=== PATIENT | male | born 1955 | race African-American/Black ===

== ENCOUNTER 2020-03-14 11:40 | Emergency (ER) | payer MEDICARE ==
[~2020-03-14] VITALS: Ht 185.4 cm; Wt 61.4 kg
[2020-03-14 12:00] VITALS: Ht 185.4 cm; Wt 61.4 kg
[2020-03-14 12:40] LABS: BASOPHILS 0.3 % (0-2); EOSINOPHILS 2.4 % (0-7); HEMATOCRIT 31.8 % (42.0-54.0); HEMOGLOBIN 10.3 g/dL (13.5-17.5); IMMATURE GRANULOCYTES 0.2 % (0-5); LYMPHOCYTES 46.9 % (15-50); MCH 32.5 pg (26.0-34.0); MCHC 32.4 g/dL (31.0-37.0); MCV 100.3 fL (80.0-100.0); MEAN PLATELET VOLUME 9.6 fL (7.4-10.4); MONOCYTES 7.5 % (2-11); NEUTROPHILS 42.7 % (40-80); PLATELET COUNT 257 10x3/uL (130-400); RBC 3.17 10x6/uL (4.20-6.10); RDW 12.9 % (11.5-14.5); WBC 6.3 10x3/uL (4.8-10.8)
[2020-03-14 12:48] LABS: ANION GAP 13.3 mmol/L (8-16); CALCIUM 9.1 mg/dL (8.5-10.1); CARBON DIOXIDE 29.1 mmol/L (21.0-32.0); CREATININE - SERUM 2.9 mg/dL (0.6-1.3); POTASSIUM - SERUM 4.4 mmol/L (3.5-5.1)
[2020-03-14 12:54] LABS: ALBUMIN 3.6 g/dL (3.4-5.0); BILIRUBIN - TOTAL 0.26 mg/dL (0.2-1.3); MAGNESIUM - SERUM 1.7 mg/dL (1.8-2.4); PROTEIN - SERUM 7.7 g/dL (6.4-8.2)
[2020-03-14 14:03] VITALS: BP 138/62
== END 2020-03-14 14:04 | disposition home or self-care (01) ==
LOC: D.ER 11:40
PROVIDERS: Family Medicine
DX: E11.65 Type 2 diabetes mellitus with hyperglycemia (principal); Z86.73 Personal history of transient ischemic attack (TIA), and cerebral infarction without residual deficits; I10 Essential (primary) hypertension; Z72.0 Tobacco use; Z79.4 Long term (current) use of insulin

== ENCOUNTER 2021-01-14 12:43 | Inpatient (IN) | payer MEDICARE ==
[~2021-01-14] VITALS: Ht 185.4 cm; Wt 67.6 kg
[2021-01-14 12:41] VITALS: BP 182/67
[~2021-01-14 12:43] MED LIST: BASAGLAR K100 UNIT/1 SC; BAYER CHEWABLE81 MG PO; COREG25 MG PO; CRESTOR20 MG PO; FUROSEMIDE20 MG PO; GABAPENTIN100 MG PO; GLUCOPHAGE1000 MG PO; K-DUR20 MEQ PO; LISINOPRIL-HCT1 EAC7 PO; LISINOPRIL2.5 MG PO; NORVASC5 MG PO; PROSCAR5 MG PO; PROTONIX20 MG PO; ZYPREXA5 MG PO
[2021-01-14 13:01] VITALS: BP 163/61
--- NOTE | 2021-01-14 13:05 | NUR ---
WARM BLANKET GIVEN TO PATIENT.
--- NOTE | 2021-01-14 13:09 | NUR ---
LAB AT BEDSIDE
--- NOTE | 2021-01-14 13:09 | NUR ---
PATIENT TAKEN TO CT
[2021-01-14 13:46] LABS: BASOPHILS 0.6 % (0-2); EOSINOPHILS 1.9 % (0-7); HEMATOCRIT 29.3 % (42.0-54.0); HEMOGLOBIN 9.6 g/dL (13.5-17.5); IMMATURE GRANULOCYTES 0.2 % (0-5); LYMPHOCYTE ABS# 2.35 10x3/uL (1.32-3.57); LYMPHOCYTES 44.6 % (15-50); MCHC 32.8 g/dL (31.0-37.0); MCV 97.7 fL (80.0-100.0); MEAN PLATELET VOLUME 10.2 fL (7.4-10.4); MONOCYTES 7.6 % (2-11); NEUTROPHIL ABS# 2.38 10x3/uL (1.78-5.38); NEUTROPHILS 45.1 % (40-80); RDW 14.6 % (11.5-14.5); WBC 5.3 10x3/uL (4.8-10.8)
[2021-01-14 13:47] LABS: CALC OSMOLALITY 306 mosm/kg (275-300); CALCIUM 8.8 mg/dL (8.5-10.1); CARBON DIOXIDE 26.8 mmol/L (21.0-32.0); CHLORIDE - SERUM 108 mmol/L (98-107); CREATININE - SERUM 2.5 mg/dL (0.6-1.3); POTASSIUM - SERUM 3.8 mmol/L (3.5-5.1); SODIUM 143 mmol/L (136-145); UREA NITROGEN 34 mg/dL (7-18); eGFR NON AFRICAN AMERICAN 27 mL/min (90-120)
[2021-01-14 13:48] LABS: PLATELET COUNT 158 10x3/uL (130-400)
[2021-01-14 13:49] LABS: GLUCOSE 343 mg/dL (74-106)
[2021-01-14 13:52] LABS: APTT 28.3 SECONDS (22.8-39.4); INR 1.07 (0.85-1.17); PROTIME 12.9 SECONDS (11.6-15.0)
[2021-01-14 14:05] LABS: ALBUMIN 2.9 g/dL (3.4-5.0); ALKALINE PHOSPHATASE 130 U/L (30-120); ALT (SGPT) 26 U/L (10-68); BILIRUBIN - TOTAL 0.28 mg/dL (0.2-1.3); CKMB 0.9 U/L (0.0-3.6); CREATINE KINASE 72 UL (21-232); MAGNESIUM - SERUM 2.2 mg/dL (1.8-2.4); PROTEIN - SERUM 6.6 g/dL (6.4-8.2); THYROID STIMULATING HORMONE 1.28 uIU/mL (0.36-3.74); TROPONIN-I < 0.017 ng/mL (0.000-0.060)
[2021-01-14 14:27] VITALS: BP 182/72
[2021-01-14 14:31] VITALS: BP 181/70
--- NOTE | 2021-01-14 14:31 | NUR ---
ASSISTED TO POSITION OF COMFORT, GIVEN WARM BLANKETS, TV TURNED ON, ORIENTED TO ROOM AND REMOTE. REQUESTING 2 SANDWICHES, ORANGE JUICE, AND SPRITE.
--- NOTE | 2021-01-14 14:54 | NUR ---
REPORT CALLED TO DOROTHY HAIDER, ACCEPTED TO ROOM 212.
--- NOTE | 2021-01-14 14:55 | NUR ---
PATIENT TAKEN TO MED II
--- NOTE | 2021-01-14 15:29 | NUR ---
RECEIVED PT TO ROOM 2125 VIA STRETCHER, X3 ASSIST TO TRANSFER PT OVER TO BED. ORIENTED PT TO ROOM AND CALL LIGHT, WILL ASSESS PT AND START PLAN OF CARE.
[2021-01-14] MEDS ORDERED: CLONIDINE HCL0.1 MG (15:48)
[2021-01-14] MEDS ORDERED: GLUCOPHAGE1000 MG PO (15:49)
[2021-01-14 15:53] VITALS: BP 187/79; BMI 19.7
[2021-01-14 19:58] VITALS: BP 160/70
--- NOTE | 2021-01-15 05:44 | NUR ---
I have reviewed this patient and I concur with the Shift Assessment completed by the Licensed Practical Nurse today this shift.
[2021-01-15 05:56] LABS: ALBUMIN 2.6 g/dL (3.4-5.0); ANION GAP 13.1 mmol/L (8-16); BILIRUBIN - TOTAL 0.17 mg/dL (0.2-1.3); CALCIUM 8.3 mg/dL (8.5-10.1); CARBON DIOXIDE 23.9 mmol/L (21.0-32.0); CREATININE - SERUM 2.3 mg/dL (0.6-1.3); PROTEIN - SERUM 6.1 g/dL (6.4-8.2)
[2021-01-15 06:26] LABS: HEMATOCRIT 27.5 % (42.0-54.0); HEMOGLOBIN 8.8 g/dL (13.5-17.5); LYMPHOCYTE ABS# 3.51 10x3/uL (1.32-3.57); MCH 31.7 pg (26.0-34.0); MCV 98.9 fL (80.0-100.0); MEAN PLATELET VOLUME 10.8 fL (7.4-10.4); NEUTROPHIL ABS# 2.69 10x3/uL (1.78-5.38); PLATELET COUNT 172 10x3/uL (130-400); RBC 2.78 10x6/uL (4.20-6.10); RDW 14.8 % (11.5-14.5); WBC 6.7 10x3/uL (4.8-10.8)
[2021-01-15 06:51] LABS: EOSINOPHILS 2 % (0-7); LYMPHOCYTES 35 % (15-50); MONOCYTES 7 % (2-11); NEUTROPHILS 56 % (40-80)
[2021-01-15 06:52] LABS: PLATELET ESTIMATE NORMAL
--- NOTE | 2021-01-15 07:20 | NUR ---
RECIEVE REPORT. ALERT AND ORIENTED X4. RESTING IN BED. DENIES ANY NEEDS AT THIS TIME. CONTINUE PLAN OF CARE AND SAFETY PRECAUTIONS.
[2021-01-15 08:03] VITALS: BP 183/70
--- NOTE | 2021-01-15 16:06 | MORECARE ---
CASE MANAGEMENT DISCHARGE SUMMARY PATIENT: JANET GRULLON UNIT: [id number] ADM DATE: 01/14/21 AGE: 66 : 54 SEX: M ROOM/BED: D.2125 AUTHOR: NARCISO HOLLY PHYSICIAN: REFERRING PHYSICIAN: SOLA WATERS MD DATE OF SERVICE: 01/15/21 Case Management Discharge Planning Summary DCP REVIEW SUMMARY ANTICIPATED D/C DATE: EXPECTED LOS : CASE STATUS: DCP Initiated INITIAL REVIEW: 01/15/2021 INITIAL REVIEWER: Toyin Hernandez FINAL DISCHARGE DISPOSITION: : FINAL REVIEWER: FINAL REVIEW DATE: DCP Focus Questions & Answers QUESTION: ANSWER : PATIENT: JANET GRULLON ENCOUNTER: [id number] MEDICAL RECORD#: [id number] ADMISSION DATE: 01/14/2021 DISCHARGE DATE: ATTENDING MD: SOLA TEAGUE : AGE: 66 MARITAL STATUS: S DC PLAN ID: [id number] FACILITY: [facility] PRINTED ON: 01/15/21 16:06 CT All edits/amendments must be made on the electronic document DICTATION DATE: 01/15/21 160 BOARD ATTENDANT: DM 01/15/21 160 RPT#: [id number] DC DATE: STATUS: ADM IN [facility] [address] [place] [address] END OF REPORT
--- NOTE | 2021-01-15 16:19 | MORECARE ---
CASE MANAGEMENT DISCHARGE SUMMARY PATIENT: JANET GRULLON UNIT: [id number] ADM DATE: 01/14/21 AGE: 66 : 54 SEX: M ROOM/BED: D.3524 AUTHOR: ELAYNE,NARCISO PHYSICIAN: REFERRING PHYSICIAN: SOLA WATERS MD DATE OF SERVICE: 01/15/21 Case Management Discharge Planning Summary COMMENTS ENTERED DATE: 01/15/21 16:08 CT COMMENT TYPE: Discharge Planning REVIEWER: Toyin Hernandez CM met with patient to discuss discharge planning/needs. He seems to be drowsy, but answers questions appropriately, although quiet. He states he lives in a one story home with his mother. He states he has no stairs to enter his home either. He states he has 3 walkers at home and also uses a wheelchair. States he has home health that visits and assists with his ADL's. He does not know the name of the agency. He tells me his mother "tries to" help him but she is unable. He states he wants to go to [facility] for rehab. I asked if I could call his mom for more information because he falls asleep frequently during assessment and he said yes. I called his mom and she states he was at [facility] last December to April of 2020. States he was transitioning to a LTC bed and he decided he did not want to stay. She states after his stay at [facility] last month, they set him up with [facility] and they send someone to assist with bathing twice a week and PT 3 times a week. She tells me that he uses a walker inside the home for ambulation and only the wheelchair when outside the home. She is also unaware of any psychiatric issues or seeing a psychiatric doctor or community counseling. Later in the conversation, she mentioned his "schizophrenia" so I'm not sure if she understands all the questions I have asked her. JASMIN for [facility] placed in chart and I will call Purvi tomorrow. I have also faxed the referral. ANNETTA form filled out and I faxed to [facility] for SNF placement. CM will continue to follow and assist with discharge planning/needs. DCP REVIEW SUMMARY ANTICIPATED D/C DATE: EXPECTED LOS : CASE STATUS: DCP Initiated INITIAL REVIEW: 01/15/2021 INITIAL REVIEWER: Toyin Hernandez FINAL DISCHARGE DISPOSITION: : FINAL REVIEWER: FINAL REVIEW DATE: DEP Focus Questions & Answers DCP Evaluation QUESTION: ANSWER Family / Caregiver's ability to cope with chronic illness: : b. Minimal (occasionally not dependable to meet pt's. needs, can meet pt's. basic ADL's) Patient gives permission to discuss discharge plans with: (name, relationship and number) : Dami Ayala Patient's ability to cope with chronic illness : d. No chronic illness Patient's current cognitive status: : *Oriented to person, place, situation, time and present Patient and/or caregiver agree upon recommended discharge plan? : Yes Physical Status: : Mobility impaired Physical Status: : Partial care dependence Physical Status: : Vision impaired Family / Caregiver's ability to cope with chronic illness: : b. Minimal (occasionally not dependable to meet pt's. needs, can meet pt's. basic ADL's) Functional screen assessment: : Unable to manage ADLs without immediate ongoing assistance Functional screen assessment: : New onset in difficulty speaking Functional screen assessment: : New onset in weakness or paralysis Does the patient have the ability to pay for or attain post discharge needs / services? : Yes Partial Dependence, assistance required for: : Ambulation / Mobility Partial Dependence, assistance required for: : Bathing Partial Dependence, assistance required for: : Dressing Living Arrangements: : Home with Parents Is there a likelihood that the patient will require additional services to return to the preadmission environment? : Yes Equipment needed for post hospitalization: : None Living arrangements comments: : Lives with his mother, Dami Ayala Baseline cognitive status: : *Oriented to person, place, situation, time and present Baseline cognitive status: : Needs prompting and supervision Patient with capacity for self-care or can be cared for in same environment as prior to hospitalization? : No Results of this evaluation have been discussed with: : Other Results of this evaluation have been discussed with: : Patient Preadmission facility can/cannot provide post hospital level of care needs: : Cannot - at higher level of care than preadmission Medication Management: : Patient states the need for assistance with medication administration Medication Management: : Patient states can afford medications Pharmacy name(s): : [facility] Does Patient have transportation to get home and to follow-up medical appointments when discharged from the hospital? : Yes Would patient like to participate in any Care Coordination programs (if applicable): : Not applicable Does the patient have electricity at home? : Yes Does the patient have running water in their house? : Yes Equipment in use: : Walker - Rolling Equipment in use: : Wheelchair Other Equipment comments: : States he has 3 walkers Mental health screen: : Receiving treatment, not under the care of a mental health provider Psychosocial status: : Adult with physical limitations Abuse/Neglect: : None Resources / Services in place: : Home health Contact information for resources in use: : [facility] DCP Re-evaluation QUESTION: ANSWER Would patient like to participate in any Care Coordination programs (if applicable): : Not applicable PATIENT: JANET GRULLON ENCOUNTER: [id number] MEDICAL RECORD#: [id number] ADMISSION DATE: 01/14/2021 DISCHARGE DATE: ATTENDING MD: SOLA TEAGUE : AGE: 66 MARITAL STATUS: S DC PLAN ID: [id number] FACILITY: [facility] PRINTED ON: 01/15/21 16:19 CT All edits/amendments must be made on the electronic document DICTATION DATE: 01/15/211618 CERTIFIED MIDWIFE: AJAY 01/15/21 161 RPT#: [id number] DC DATE: STATUS: ADM IN [facility] [address] [place] [address] END OF REPORT
--- NOTE | 2021-01-15 19:45 | NUR ---
RECEIVED REPORT, WILL ASSUME CARE OF PT, ASSISTED WITH URINAL, DENIES ANY OTHER NEEDS AT THIS TIME, BED IS LOW, SRX2, CALL LIGHT IN REACH, WILL CONTINUE PLAN OF CARE
[2021-01-15 22:06] VITALS: BP 199/76
--- NOTE | 2021-01-15 22:35 | NUR ---
I have reviewed this patient and I concur with the Shift Assessment completed by the Licensed Practical Nurse today this shift.
--- NOTE | 2021-01-16 07:20 | NUR ---
RECIEVE REPORT. RESTING IN BED WITH EYES CLOSED. SINUS VARSHA 50. NO SIGNS OF DISTRESS. CONTINUE PLAN OF CARE AND SAFETY PRECAUTIONS.
[2021-01-16 08:00] VITALS: BP 198/86
--- NOTE | 2021-01-16 10:02 | MORECARE ---
CASE MANAGEMENT DISCHARGE SUMMARY PATIENT: JANET GRULLON UNIT: [id number] ADM DATE: 01/14/21 AGE: 66 : 54 SEX: M ROOM/BED: D.1082 AUTHOR: ELAYNE,DOC PHYSICIAN: REFERRING PHYSICIAN: SOLA WATERS MD DATE OF SERVICE: 01/16/21 Case Management Discharge Planning Summary COMMENTS ENTERED DATE: 01/16/21 9:58 CT COMMENT TYPE: Discharge Planning REVIEWER: Toyin Hernandez CM spoke with Purvi at [facility] and ANNETTA approval faxed to her. CM will continue to follow and assist with discharge planning/needs. ENTERED DATE: 01/15/21 16:08 CT COMMENT TYPE: Discharge Planning REVIEWER: Toyin Hernandez CM met with patient to discuss discharge planning/needs. He seems to be drowsy, but answers questions appropriately, although quiet. He states he lives in a one story home with his mother. He states he has no stairs to enter his home either. He states he has 3 walkers at home and also uses a wheelchair. States he has home health that visits and assists with his ADL's. He does not know the name of the agency. He tells me his mother "tries to" help him but she is unable. He states he wants to go to [facility] for rehab. I asked if I could call his mom for more information because he falls asleep frequently during assessment and he said yes. I called his mom and she states he was at [facility] last December to April of 2020. States he was transitioning to a LTC bed and he decided he did not want to stay. She states after his stay at [facility] last month, they set him up with [facility] and they send someone to assist with bathing twice a week and PT 3 times a week. She tells me that he uses a walker inside the home for ambulation and only the wheelchair when outside the home. She is also unaware of any psychiatric issues or seeing a psychiatric doctor or community counseling. Later in the conversation, she mentioned his "schizophrenia" so I'm not sure if she understands all the questions I have asked her. JASMIN for [facility] placed in chart and I will call Purvi tomorrow. I have also faxed the referral. ANNETTA form filled out and I faxed to [facility] for SNF placement. CM will continue to follow and assist with discharge planning/needs. DCP REVIEW SUMMARY ANTICIPATED D/C DATE: EXPECTED LOS : CASE STATUS: DCP Initiated INITIAL REVIEW: 01/15/2021 INITIAL REVIEWER: Toyin Hernandez FINAL DISCHARGE DISPOSITION: : FINAL REVIEWER: FINAL REVIEW DATE: DCP Focus Questions & Answers DCP Evaluation QUESTION: ANSWER Patient and/or caregiver agree upon recommended discharge plan? : Yes Family / Caregiver's ability to cope with chronic illness: : b. Minimal (occasionally not dependable to meet pt's. needs, can meet pt's. basic ADL's) Patient's current cognitive status: : *Oriented to person, place, situation, time and present Patient's ability to cope with chronic illness : d. No chronic illness Patient gives permission to discuss discharge plans with: (name, relationship and number) : Dami Ayala Does the patient have the ability to pay for or attain post discharge needs / services? : Yes Functional screen assessment: : New onset in weakness or paralysis Functional screen assessment: : New onset in difficulty speaking Functional screen assessment: : Unable to manage ADLs without immediate ongoing assistance Family / Caregiver's ability to cope with chronic illness: : b. Minimal (occasionally not dependable to meet pt's. needs, can meet pt's. basic ADL's) Physical Status: : Vision impaired Physical Status: : Partial care dependence Physical Status: : Mobility impaired Equipment needed for post hospitalization: : None Is there a likelihood that the patient will require additional services to return to the preadmission environment? : Yes Living Arrangements: : Home with Parents Partial Dependence, assistance required for: : Dressing Partial Dependence, assistance required for: : Bathing Partial Dependence, assistance required for: : Ambulation / Mobility Results of this evaluation have been discussed with: : Patient Results of this evaluation have been discussed with: : Other Patient with capacity for self-care or can be cared for in same environment as prior to hospitalization? : No Living arrangements comments: : Lives with his mother, Dami Ayala Baseline cognitive status: : Needs prompting and supervision Baseline cognitive status: : *Oriented to person, place, situation, time and present Preadmission facility can/cannot provide post hospital level of care needs: : Cannot - at higher level of care than preadmission Medication Management: : Patient states can afford medications Medication Management: : Patient states the need for assistance with medication administration Pharmacy name(s): : [facility] Does Patient have transportation to get home and to follow-up medical appointments when discharged from the hospital? : Yes Would patient like to participate in any Care Coordination programs (if applicable): : Not applicable Does the patient have electricity at home? : Yes Does the patient have running water in their house? : Yes Equipment in use: : Wheelchair Equipment in use: : Walker - Rolling Other Equipment comments: : States he has 3 walkers Mental health screen: : Receiving treatment, not under the care of a mental health provider Psychosocial status: : Adult with physical limitations Abuse/Neglect: : None Resources / Services in place: : Home health Contact information for resources in use: : [facility] DCP Re-evaluation QUESTION: ANSWER Would patient like to participate in any Care Coordination programs (if applicable): : Not applicable PATIENT: JANET GRULLON ENCOUNTER: [id number] MEDICAL RECORD#: [id number] ADMISSION DATE: 01/14/2021 DISCHARGE DATE: ATTENDING MD: SOLA TEAGUE : AGE: 66 MARITAL STATUS: S DC PLAN ID: [id number] FACILITY: [facility] PRINTED ON: 01/16/21 10:02 CT All edits/amendments must be made on the electronic document DICTATION DATE: 01/16/21 1002 ENGRAVER WOOD: AJAY 01/16/21 1002 RPT#: [id number] DC DATE: STATUS: ADM IN [facility] [address] [place] [address] END OF REPORT
[2021-01-16 12:00] VITALS: BP 196/84
[2021-01-16 13:25] VITALS: Ht 185.4 cm; Wt 67.6 kg
[2021-01-16 15:00] VITALS: BP 190/81
--- NOTE | 2021-01-16 15:32 | MORECARE ---
CASE MANAGEMENT DISCHARGE SUMMARY PATIENT: JANET GRULLON UNIT: [id number] ADM DATE: 01/14/21 AGE: 66 : 54 SEX: M ROOM/BED: D.2475 AUTHOR: ELAYNE,DOC PHYSICIAN: REFERRING PHYSICIAN: SOLA WATERS MD DATE OF SERVICE: 01/16/21 Case Management Discharge Planning Summary COMMENTS ENTERED DATE: 01/16/21 15:31 CT COMMENT TYPE: Discharge Planning REVIEWER: Toyin Hernandez Received a call from Purvi from [facility] and they can accept patient in the morning. She will call back with a milk pickup truck driver time. He will go to a skilled (Medicare) bed. ENTERED DATE: 01/16/21 9:58 CT COMMENT TYPE: Discharge Planning REVIEWER: Toyin Hernandez CM spoke with Purvi at [facility] and ANNETTA approval faxed to her. CM will continue to follow and assist with discharge planning/needs. ENTERED DATE: 01/15/21 16:08 CT COMMENT TYPE: Discharge Planning REVIEWER: Toyin Mary CHÁVEZ met with patient to discuss discharge planning/needs. He seems to be drowsy, but answers questions appropriately, although quiet. He states he lives in a one story home with his mother. He states he has no stairs to enter his home either. He states he has 3 walkers at home and also uses a wheelchair. States he has home health that visits and assists with his ADL's. He does not know the name of the agency. He tells me his mother "tries to" help him but she is unable. He states he wants to go to [facility] for rehab. I asked if I could call his mom for more information because he falls asleep frequently during assessment and he said yes. I called his mom and she states he was at [facility] last December to April of 2020. States he was transitioning to a LTC bed and he decided he did not want to stay. She states after his stay at [facility] last month, they set him up with [facility] and they send someone to assist with bathing twice a week and PT 3 times a week. She tells me that he uses a walker inside the home for ambulation and only the wheelchair when outside the home. She is also unaware of any psychiatric issues or seeing a psychiatric doctor or community counseling. Later in the conversation, she mentioned his "schizophrenia" so I'm not sure if she understands all the questions I have asked her. JASMIN for [facility] placed in chart and I will call Purvi tomorrow. I have also faxed the referral. ANNETTA form filled out and I faxed to [facility] [place] SNF placement. CM will continue to follow and assist with discharge planning/needs. DCP REVIEW SUMMARY ANTICIPATED D/C DATE: EXPECTED LOS : CASE STATUS: DCP Initiated INITIAL REVIEW: 01/15/2021 INITIAL REVIEWER: Toyin Hernandez FINAL DISCHARGE DISPOSITION: : FINAL REVIEWER: FINAL REVIEW DATE: DCP Focus Questions & Answers DCP Evaluation QUESTION: ANSWER Patient and/or caregiver agree upon recommended discharge plan? : Yes Family / Caregiver's ability to cope with chronic illness: : b. Minimal (occasionally not dependable to meet pt's. needs, can meet pt's. basic ADL's) Patient's current cognitive status: : *Oriented to person, place, situation, time and present Patient's ability to cope with chronic illness : d. No chronic illness Patient gives permission to discuss discharge plans with: (name, relationship and number) : Dami Ayala Does the patient have the ability to pay for or attain post discharge needs / services? : Yes Functional screen assessment: : New onset in weakness or paralysis Functional screen assessment: : New onset in difficulty speaking Functional screen assessment: : Unable to manage ADLs without immediate ongoing assistance Family / Caregiver's ability to cope with chronic illness: : b. Minimal (occasionally not dependable to meet pt's. needs, can meet pt's. basic ADL's) Physical Status: : Vision impaired Physical Status: : Partial care dependence Physical Status: : Mobility impaired Equipment needed for post hospitalization: : None Is there a likelihood that the patient will require additional services to return to the preadmission environment? : Yes Living Arrangements: : Home with Parents Partial Dependence, assistance required for: : Dressing Partial Dependence, assistance required for: : Bathing Partial Dependence, assistance required for: : Ambulation / Mobility Results of this evaluation have been discussed with: : Patient Results of this evaluation have been discussed with: : Other Patient with capacity for self-care or can be cared for in same environment as prior to hospitalization? : No Living arrangements comments: : Lives with his mother, Dami Ayala Baseline cognitive status: : Needs prompting and supervision Baseline cognitive status: : *Oriented to person, place, situation, time and present Preadmission facility can/cannot provide post hospital level of care needs: : Cannot - at higher level of care than preadmission Medication Management: : Patient states can afford medications Medication Management: : Patient states the need for assistance with medication administration Pharmacy name(s): : [facility] Does Patient have transportation to get home and to follow-up medical appointments when discharged from the hospital? : Yes Would patient like to participate in any Care Coordination programs (if applicable): : Not applicable Does the patient have electricity at home? : Yes Does the patient have running water in their house? : Yes Equipment in use: : Wheelchair Equipment in use: : Walker - Rolling Other Equipment comments: : States he has 3 walkers Mental health screen: : Receiving treatment, not under the care of a mental health provider Psychosocial status: : Adult with physical limitations Abuse/Neglect: : None Resources / Services in place: : Home health Contact information for resources in use: : [facility] DCP Re-evaluation QUESTION: ANSWER Would patient like to participate in any Care Coordination programs (if applicable): : Not applicable PATIENT: JANET GRULLON ENCOUNTER: [id number] MEDICAL RECORD#: [id number] ADMISSION DATE: 01/14/2021 DISCHARGE DATE: ATTENDING MD: SOLA TEAGUE : AGE: 66 MARITAL STATUS: S DC PLAN ID: [id number] FACILITY: [facility] PRINTED ON: 01/16/21 15:32 CT All edits/amendments must be made on the electronic document DICTATION DATE: 01/16/211531 GERIATRIC PERSONAL CARE AIDE: AJAY 01/16/211531 RPT#: [id number] DC DATE: STATUS: ADM IN [facility] [address] [place] [address] END OF REPORT
--- NOTE | 2021-01-16 19:31 | NUR ---
CL ANSWERED, PLACED PTS SOCKS ON FEET, READJUSTED BLANKETS, AND REMOVED DINNER TRAY, PT DENIES PAIN OR OTHER NEEDS AT THIS TIME.
[2021-01-16 20:00] VITALS: BP 178/70
--- NOTE | 2021-01-17 02:22 | NUR ---
RESTING WITH EYES CLOSED, RESPERATIONS EVEN, NO S/S DISTRESS NOTED.
[2021-01-17 04:00] VITALS: BP 179/69
--- NOTE | 2021-01-17 05:07 | NUR ---
I have reviewed this patient and I concur with the Shift Assessment completed by the Licensed Practical Nurse today this shift.
--- NOTE | 2021-01-17 06:49 | NUR ---
BS 53, GAVE PT APPLE JUICE AND PUDDING.
[2021-01-17] MEDS ORDERED: NICODERM CQ1 EAC2 TRANSDERM (07:30)
[2021-01-17] MEDS ORDERED: NORVASC10 MG PO (07:30)
[2021-01-17] MEDS ORDERED: HYDRALAZINE HCL10 MG PO (07:31)
[2021-01-17] MEDS ORDERED: COREG6.25 MG PO (07:32)
[2021-01-17] MEDS ORDERED: HUMALOG 30100 UNITS/ SC (07:40)
--- NOTE | 2021-01-17 08:13 | NUR ---
REPORT CALLED TO NURSE AT [facility]. DC LT FA IV TIP INTACT. TRANSPORT ARRIVES. ASSIST TO WHEELCHAIR. DEPARTS BUILDING. REMAINS FREE FROM INJURY.
--- NOTE | 2021-01-17 08:20 | MORECARE ---
CASE MANAGEMENT DISCHARGE SUMMARY PATIENT: JANET GRULLON UNIT: [id number] ADM DATE: 01/14/21 AGE: 66 : 54 SEX: M ROOM/BED: D.3695 AUTHOR: ELAYNE,DOC PHYSICIAN: REFERRING PHYSICIAN: SOLA WATERS MD DATE OF SERVICE: 01/17/21 Case Management Discharge Planning Summary COMMENTS ENTERED DATE: 01/16/21 15:31 CT COMMENT TYPE: Discharge Planning REVIEWER: Toyin Hernandez Received a call from Purvi from [facility] and they can accept patient in the morning. She will call back with a picker packer time. He will go to a skilled (Medicare) bed. ENTERED DATE: 01/16/21 9:58 CT COMMENT TYPE: Discharge Planning REVIEWER: Toyin Hernandez CM spoke with Purvi at [facility] and ANNETTA approval faxed to her. CM will continue to follow and assist with discharge planning/needs. ENTERED DATE: 01/15/21 16:08 CT COMMENT TYPE: Discharge Planning REVIEWER: Toyin Mary CHÁVEZ met with patient to discuss discharge planning/needs. He seems to be drowsy, but answers questions appropriately, although quiet. He states he lives in a one story home with his mother. He states he has no stairs to enter his home either. He states he has 3 walkers at home and also uses a wheelchair. States he has home health that visits and assists with his ADL's. He does not know the name of the agency. He tells me his mother "tries to" help him but she is unable. He states he wants to go to [facility] for rehab. I asked if I could call his mom for more information because he falls asleep frequently during assessment and he said yes. I called his mom and she states he was at [facility] last December to April of 2020. States he was transitioning to a LTC bed and he decided he did not want to stay. She states after his stay at [facility] last month, they set him up with [facility] and they send someone to assist with bathing twice a week and PT 3 times a week. She tells me that he uses a walker inside the home for ambulation and only the wheelchair when outside the home. She is also unaware of any psychiatric issues or seeing a psychiatric doctor or community counseling. Later in the conversation, she mentioned his "schizophrenia" so I'm not sure if she understands all the questions I have asked her. JASMIN for [facility] placed in chart and I will call Purvi tomorrow. I have also faxed the referral. ANNETTA form filled out and I faxed to [facility] for SNF placement. CM will continue to follow and assist with discharge planning/needs. DCP REVIEW SUMMARY ANTICIPATED D/C DATE: EXPECTED LOS : CASE STATUS: DCP Initiated INITIAL REVIEW: 01/15/2021 INITIAL REVIEWER: Toyin Hernandez FINAL DISCHARGE DISPOSITION: : FINAL REVIEWER: FINAL REVIEW DATE: DCP Focus Questions & Answers DCP Evaluation QUESTION: ANSWER Patient and/or caregiver agree upon recommended discharge plan? : Yes Family / Caregiver's ability to cope with chronic illness: : b. Minimal (occasionally not dependable to meet pt's. needs, can meet pt's. basic ADL's) Patient's current cognitive status: : *Oriented to person, place, situation, time and present Patient's ability to cope with chronic illness : d. No chronic illness Patient gives permission to discuss discharge plans with: (name, relationship and number) : Dami Aayla Does the patient have the ability to pay for or attain post discharge needs / services? : Yes Functional screen assessment: : New onset in weakness or paralysis Functional screen assessment: : New onset in difficulty speaking Functional screen assessment: : Unable to manage ADLs without immediate ongoing assistance Family / Caregiver's ability to cope with chronic illness: : b. Minimal (occasionally not dependable to meet pt's. needs, can meet pt's. basic ADL's) Physical Status: : Vision impaired Physical Status: : Partial care dependence Physical Status: : Mobility impaired Equipment needed for post hospitalization: : None Is there a likelihood that the patient will require additional services to return to the preadmission environment? : Yes Living Arrangements: : Home with Parents Partial Dependence, assistance required for: : Dressing Partial Dependence, assistance required for: : Bathing Partial Dependence, assistance required for: : Ambulation / Mobility Results of this evaluation have been discussed with: : Patient Results of this evaluation have been discussed with: : Other Patient with capacity for self-care or can be cared for in same environment as prior to hospitalization? : No Living arrangements comments: : Lives with his mother, Dami Ayala Baseline cognitive status: : Needs prompting and supervision Baseline cognitive status: : *Oriented to person, place, situation, time and present Preadmission facility can/cannot provide post hospital level of care needs: : Cannot - at higher level of care than preadmission Medication Management: : Patient states can afford medications Medication Management: : Patient states the need for assistance with medication administration Pharmacy name(s): : [facility] Does Patient have transportation to get home and to follow-up medical appointments when discharged from the hospital? : Yes Would patient like to participate in any Care Coordination programs (if applicable): : Not applicable Does the patient have electricity at home? : Yes Does the patient have running water in their house? : Yes Equipment in use: : Wheelchair Equipment in use: : Walker - Rolling Other Equipment comments: : States he has 3 walkers Mental health screen: : Receiving treatment, not under the care of a mental health provider Psychosocial status: : Adult with physical limitations Abuse/Neglect: : None Resources / Services in place: : Home health Contact information for resources in use: : [facility] DCP Re-evaluation QUESTION: ANSWER Would patient like to participate in any Care Coordination programs (if applicable): : Not applicable PATIENT: JANET GRULLON ENCOUNTER: [id number] MEDICAL RECORD#: [id number] ADMISSION DATE: 01/14/2021 DISCHARGE DATE: 01/17/2021 ATTENDING MD: SOLA TEAGUE : AGE: 66 MARITAL STATUS: S DC PLAN ID: [id number] FACILITY: [facility] PRINTED ON: 01/17/21 8:20 CT All edits/amendments must be made on the electronic document DICTATION DATE: 01/17/21819 MEDICAL STAFF DIRECTOR: AJAY 01/17/21819 RPT#: [id number] DC DATE:01/17/21 STATUS: DIS IN [facility] [address] [facility] [place] [address] END OF REPORT
--- NOTE | 2021-01-17 09:58 | MORECARE ---
CASE MANAGEMENT DISCHARGE SUMMARY PATIENT: JANET GRULLON UNIT: [id number] ADM DATE: 01/14/21 AGE: 66 : 54 SEX: M ROOM/BED: D.7745 AUTHOR: ELAYNE,DOC PHYSICIAN: REFERRING PHYSICIAN: SOLA WATERS MD DATE OF SERVICE: 01/17/21 Case Management Discharge Planning Summary COMMENTS ENTERED DATE: 01/16/21 15:31 CT COMMENT TYPE: Discharge Planning REVIEWER: Toyin Hernandez Received a call from Purvi from [facility] and they can accept patient in the morning. She will call back with a picker operator time. He will go to a skilled (Medicare) bed. ENTERED DATE: 01/16/21 9:58 CT COMMENT TYPE: Discharge Planning REVIEWER: Toyin Hernandez CM spoke with Purvi at [facility] and ANNETTA approval faxed to her. CM will continue to follow and assist with discharge planning/needs. ENTERED DATE: 01/15/21 16:08 CT COMMENT TYPE: Discharge Planning REVIEWER: Toyin Mary CHÁVEZ met with patient to discuss discharge planning/needs. He seems to be drowsy, but answers questions appropriately, although quiet. He states he lives in a one story home with his mother. He states he has no stairs to enter his home either. He states he has 3 walkers at home and also uses a wheelchair. States he has home health that visits and assists with his ADL's. He does not know the name of the agency. He tells me his mother "tries to" help him but she is unable. He states he wants to go to [facility] for rehab. I asked if I could call his mom for more information because he falls asleep frequently during assessment and he said yes. I called his mom and she states he was at [facility] last December to April of 2020. States he was transitioning to a LTC bed and he decided he did not want to stay. She states after his stay at [facility] last month, they set him up with [facility] and they send someone to assist with bathing twice a week and PT 3 times a week. She tells me that he uses a walker inside the home for ambulation and only the wheelchair when outside the home. She is also unaware of any psychiatric issues or seeing a psychiatric doctor or community counseling. Later in the conversation, she mentioned his "schizophrenia" so I'm not sure if she understands all the questions I have asked her. JASMIN for [facility] placed in chart and I will call Purvi tomorrow. I have also faxed the referral. ANNETTA form filled out and I faxed to [facility] for SNF placement. CM will continue to follow and assist with discharge planning/needs. DCP REVIEW SUMMARY ANTICIPATED D/C DATE: EXPECTED LOS : CASE STATUS: DCP Initiated INITIAL REVIEW: 01/15/2021 INITIAL REVIEWER: Toyin Hernandez FINAL DISCHARGE DISPOSITION: : FINAL REVIEWER: FINAL REVIEW DATE: DCP Focus Questions & Answers DCP Evaluation QUESTION: ANSWER Patient and/or caregiver agree upon recommended discharge plan? : Yes Family / Caregiver's ability to cope with chronic illness: : b. Minimal (occasionally not dependable to meet pt's. needs, can meet pt's. basic ADL's) Patient's current cognitive status: : *Oriented to person, place, situation, time and present Patient's ability to cope with chronic illness : d. No chronic illness Patient gives permission to discuss discharge plans with: (name, relationship and number) : Dami Ayala Does the patient have the ability to pay for or attain post discharge needs / services? : Yes Functional screen assessment: : New onset in weakness or paralysis Functional screen assessment: : New onset in difficulty speaking Functional screen assessment: : Unable to manage ADLs without immediate ongoing assistance Family / Caregiver's ability to cope with chronic illness: : b. Minimal (occasionally not dependable to meet pt's. needs, can meet pt's. basic ADL's) Physical Status: : Vision impaired Physical Status: : Partial care dependence Physical Status: : Mobility impaired Equipment needed for post hospitalization: : None Is there a likelihood that the patient will require additional services to return to the preadmission environment? : Yes Living Arrangements: : Home with Parents Partial Dependence, assistance required for: : Dressing Partial Dependence, assistance required for: : Bathing Partial Dependence, assistance required for: : Ambulation / Mobility Results of this evaluation have been discussed with: : Patient Results of this evaluation have been discussed with: : Other Patient with capacity for self-care or can be cared for in same environment as prior to hospitalization? : No Living arrangements comments: : Lives with his mother, Dami Ayala Baseline cognitive status: : Needs prompting and supervision Baseline cognitive status: : *Oriented to person, place, situation, time and present Preadmission facility can/cannot provide post hospital level of care needs: : Cannot - at higher level of care than preadmission Medication Management: : Patient states can afford medications Medication Management: : Patient states the need for assistance with medication administration Pharmacy name(s): : [facility] Does Patient have transportation to get home and to follow-up medical appointments when discharged from the hospital? : Yes Would patient like to participate in any Care Coordination programs (if applicable): : Not applicable Does the patient have electricity at home? : Yes Does the patient have running water in their house? : Yes Equipment in use: : Wheelchair Equipment in use: : Walker - Rolling Other Equipment comments: : States he has 3 walkers Mental health screen: : Receiving treatment, not under the care of a mental health provider Psychosocial status: : Adult with physical limitations Abuse/Neglect: : None Resources / Services in place: : Home health Contact information for resources in use: : [facility] Re-evaluation QUESTION: ANSWER Would patient like to participate in any Care Coordination programs (if applicable): : Not applicable PATIENT: JANET GRULLON ENCOUNTER: [id number] MEDICAL RECORD#: [id number] ADMISSION DATE: 01/14/2021 DISCHARGE DATE: 01/17/2021 ATTENDING MD: SOLA TEAGUE : AGE: 66 MARITAL STATUS: S DC PLAN ID: [id number] FACILITY: [facility] PRINTED ON: 01/17/21 9:57 CT All edits/amendments must be made on the electronic document DICTATION DATE: 01/17/2157 SACK SEWER: AJAY 01/17/21 0957 RPT#: [id number] DC DATE:01/17/21 STATUS: DIS IN [facility] [address] [place] [address] END OF REPORT
--- NOTE | 2021-01-19 09:16 | MORECARE ---
CASE MANAGEMENT DISCHARGE SUMMARY PATIENT: JANET GRULLON UNIT: [id number] ADM DATE: 01/14/21 AGE: 66 : 53 SEX: M ROOM/BED: D.9845 AUTHOR: ELAYNE,DOC PHYSICIAN: REFERRING PHYSICIAN: SOLA WATERS MD DATE OF SERVICE: 01/19/21 Case Management Discharge Planning Summary COMMENTS ENTERED DATE: 01/16/21 15:31 CT COMMENT TYPE: Discharge Planning REVIEWER: Toyin Hernandez Received a call from Purvi from [facility] and they can accept patient in the morning. She will call back with a pick up worker time. He will go to a skilled (Medicare) bed. ENTERED DATE: 01/16/21 9:58 CT COMMENT TYPE: Discharge Planning REVIEWER: Toyin Hernandez CM spoke with Purvi at [facility] and ANNETTA approval faxed to her. CM will continue to follow and assist with discharge planning/needs. ENTERED DATE: 01/15/21 16:08 CT COMMENT TYPE: Discharge Planning REVIEWER: Toyin Mary CHÁVEZ met with patient to discuss discharge planning/needs. He seems to be drowsy, but answers questions appropriately, although quiet. He states he lives in a one story home with his mother. He states he has no stairs to enter his home either. He states he has 3 walkers at home and also uses a wheelchair. States he has home health that visits and assists with his ADL's. He does not know the name of the agency. He tells me his mother "tries to" help him but she is unable. He states he wants to go to [facility] for rehab. I asked if I could call his mom for more information because he falls asleep frequently during assessment and he said yes. I called his mom and she states he was at [facility] last December to April of 2020. States he was transitioning to a LTC bed and he decided he did not want to stay. She states after his stay at [facility] last month, they set him up with [facility] and they send someone to assist with bathing twice a week and PT 3 times a week. She tells me that he uses a walker inside the home for ambulation and only the wheelchair when outside the home. She is also unaware of any psychiatric issues or seeing a psychiatric doctor or community counseling. Later in the conversation, she mentioned his "schizophrenia" so I'm not sure if she understands all the questions I have asked her. JASMIN for [facility] placed in chart and I will call Purvi tomorrow. I have also faxed the referral. ANNETTA form filled out and I faxed to [facility] for SNF placement. CM will continue to follow and assist with discharge planning/needs. DCP REVIEW SUMMARY ANTICIPATED D/C DATE: EXPECTED LOS : CASE STATUS: DCP Initiated INITIAL REVIEW: 01/15/2021 INITIAL REVIEWER: Toyin Hernandez FINAL DISCHARGE DISPOSITION: : FINAL REVIEWER: FINAL REVIEW DATE: DCP Focus Questions & Answers DCP Evaluation QUESTION: ANSWER Patient and/or caregiver agree upon recommended discharge plan? : Yes Family / Caregiver's ability to cope with chronic illness: : b. Minimal (occasionally not dependable to meet pt's. needs, can meet pt's. basic ADL's) Patient's current cognitive status: : *Oriented to person, place, situation, time and present Patient's ability to cope with chronic illness : d. No chronic illness Patient gives permission to discuss discharge plans with: (name, relationship and number) : Dami Ayala Does the patient have the ability to pay for or attain post discharge needs / services? : Yes Functional screen assessment: : New onset in weakness or paralysis Functional screen assessment: : New onset in difficulty speaking Functional screen assessment: : Unable to manage ADLs without immediate ongoing assistance Family / Caregiver's ability to cope with chronic illness: : b. Minimal (occasionally not dependable to meet pt's. needs, can meet pt's. basic ADL's) Physical Status: : Vision impaired Physical Status: : Partial care dependence Physical Status: : Mobility impaired Equipment needed for post hospitalization: : None Is there a likelihood that the patient will require additional services to return to the preadmission environment? : Yes Living Arrangements: : Home with Parents Partial Dependence, assistance required for: : Dressing Partial Dependence, assistance required for: : Bathing Partial Dependence, assistance required for: : Ambulation / Mobility Results of this evaluation have been discussed with: : Patient Results of this evaluation have been discussed with: : Other Patient with capacity for self-care or can be cared for in same environment as prior to hospitalization? : No Living arrangements comments: : Lives with his mother, Dami Ayala Baseline cognitive status: : Needs prompting and supervision Baseline cognitive status: : *Oriented to person, place, situation, time and present Preadmission facility can/cannot provide post hospital level of care needs: : Cannot - at higher level of care than preadmission Medication Management: : Patient states can afford medications Medication Management: : Patient states the need for assistance with medication administration Pharmacy name(s): : [facility] Does Patient have transportation to get home and to follow-up medical appointments when discharged from the hospital? : Yes Would patient like to participate in any Care Coordination programs (if applicable): : Not applicable Does the patient have electricity at home? : Yes Does the patient have running water in their house? : Yes Equipment in use: : Wheelchair Equipment in use: : Walker - Rolling Other Equipment comments: : States he has 3 walkers Mental health screen: : Receiving treatment, not under the care of a mental health provider Psychosocial status: : Adult with physical limitations Abuse/Neglect: : None Resources / Services in place: : Home health Contact information for resources in use: : [facility] DCP Re-evaluation QUESTION: ANSWER Would patient like to participate in any Care Coordination programs (if applicable): : Not applicable PATIENT: JANET GRULLON ENCOUNTER: [id number] MEDICAL RECORD#: [id number] ADMISSION DATE: 01/14/2021 DISCHARGE DATE: 01/17/2021 ATTENDING MD: SOLA TEAGUE : AGE: 66 MARITAL STATUS: S DC PLAN ID: [id number] FACILITY: [facility] PRINTED ON: 01/19/21 9:16 CT All edits/amendments must be made on the electronic document DICTATION DATE: 01/19/21915 ASSET PROTECTION SPECIALIST: AJAY 01/19/21915 RPT#: [id number] DC DATE:01/17/21 STATUS: DIS IN [facility] [address] [place] [place] [address] END OF REPORT
== END 2021-01-17 08:16 | DRG 641 ==
LOC: D.ER 12:43 → D.M2 14:11
PROVIDERS: Family Medicine; ADMIT Family Medicine; ATTEND Family Medicine
DX: R62.7 Adult failure to thrive (principal); Z68.1 Body mass index [BMI] 19.9 or less, adult; M47.12 Other spondylosis with myelopathy, cervical region; A52.16 Charcot's arthropathy (tabetic); Z99.3 Dependence on wheelchair; R00.1 Bradycardia, unspecified; E11.22 Type 2 diabetes mellitus with diabetic chronic kidney disease; I12.9 Hypertensive chronic kidney disease with stage 1 through stage 4 chronic kidney disease, or unspecified chronic kidney disease; N18.30 Chronic kidney disease, stage 3 unspecified; F41.9 Anxiety disorder, unspecified; Z91.81 History of falling; Z86.73 Personal history of transient ischemic attack (TIA), and cerebral infarction without residual deficits; Z72.0 Tobacco use

== ENCOUNTER → 2021-01-20 13:52 | Outpatient (CLI) | payer MEDICARE ==
[2021-01-16 13:25] VITALS: BMI 19.6
[~2021-01-20 13:52] MED LIST changes: +CLONIDINE HCL0.1 MG; +COREG6.25 MG PO; +HUMALOG 30100 UNITS/ SC; +HYDRALAZINE HCL10 MG PO; +NICODERM CQ1 EAC2 TRANSDERM; +NORVASC10 MG PO
[2021-01-20 14:15] LABS: BASOPHILS 0.2 % (0-2); EOSINOPHILS 1.7 % (0-7); HEMOGLOBIN 9.7 g/dL (13.5-17.5); IMMATURE GRANULOCYTES 0.2 % (0-5); LYMPHOCYTE ABS# 3.32 10x3/uL (1.32-3.57); LYMPHOCYTES 39.3 % (15-50); MCH 31.1 pg (26.0-34.0); MCHC 31.3 g/dL (31.0-37.0); MCV 99.4 fL (80.0-100.0); MEAN PLATELET VOLUME 10.7 fL (7.4-10.4); MONOCYTES 8.2 % (2-11); NEUTROPHIL ABS# 4.25 10x3/uL (1.78-5.38); NEUTROPHILS 50.4 % (40-80); RBC 3.12 10x6/uL (4.20-6.10); RDW 14.4 % (11.5-14.5); WBC 8.4 10x3/uL (4.8-10.8)
[2021-01-20 14:20] LABS: PLATELET COUNT 233 10x3/uL (130-400)
[2021-01-20 14:24] LABS: ALBUMIN 2.6 g/dL (3.4-5.0); ANION GAP 12.3 mmol/L (8-16); BILIRUBIN - TOTAL 0.25 mg/dL (0.2-1.3); CALCIUM 7.8 mg/dL (8.5-10.1); CARBON DIOXIDE 25.2 mmol/L (21.0-32.0); CHOL - HDL RATIO 2.2 ratio (2.3-4.9); CREATININE - SERUM 2.2 mg/dL (0.6-1.3); LDL-HDL RATIO 0.8 ratio (1.5-3.5); POTASSIUM - SERUM 4.5 mmol/L (3.5-5.1); PROTEIN - SERUM 5.8 g/dL (6.4-8.2)
== END | disposition home or self-care (01) ==
LOC: D.LABREF 13:52
PROVIDERS: ATTEND Family Medicine
DX: Z02.0 Encounter for examination for admission to educational institution (principal)